=== PATIENT | male | born 1955 | race Caucasian/White ===

== ENCOUNTER 2016-12-19 17:09 | Inpatient (IN) | payer MEDICARE, MEDICAID ==
[2016-12-19] MEDS ORDERED: Sodium Chloride 0.9% 1,000 ML IV ONE ×2 (17:24→19:32)
[2016-12-19] MEDS ORDERED: Ondansetron 4 MG/2 ML SDV IVPUSH ONE (17:25)
--- NOTE | 2016-12-19 17:38 | EDM.PDOC ---
ED HPI GENERAL MEDICAL PROBLEM - General Chief Complaint: General Stated Complaint: REACTION TO CHEMO Time Seen by Provider: 12/19/16 17:09 Source of Information: Reports: Patient, Family History Limitations: Reports: Physical Impairment - History of Present Illness INITIAL COMMENTS - FREE TEXT/NARRATIVE: 61 y.o.w.m with a history of bladder CA, on chemo, came to the ed due to severe diarrhea, weakness and unable to ambulate. Poor historian. Onset: Unknown/Unsure Onset Date: 12/19/16 Onset Time: 06:00 Duration: Hour(s): Location: Reports: Abdomen Quality: Reports: Ache Severity: Mild Improves with: Reports: Immobilization Worsens with: Reports: Movement Context: Reports: Activity Associated Symptoms: Reports: Weakness - Related Data Allergies Allergy/AdvReac Type Severity Reaction Status Date / Time No Known Allergies Allergy Verified 12/19/16 17:16 Home Meds: Home Meds Losartan/Hydrochlorothiazide [Losartan-HCTZ 100-12.5 MG] 1 each PO DAILY [History] Sennosides [Senokot] 8.6 mg PO DAILY #14 tablet 03/02/16 [Rx] .Nausea Medication During Chemo PO Q4H PRN 12/19/16 [History] Past Medical History HEENT History: Reports: Cataract Cardiovascular History: Reports: Hypertension Genitourinary History: Reports: Other (See Below) Other Genitourinary History: bladder cancer Oncologic (Cancer) History: Reports: Bladder - Past Surgical History HEENT Surgical History: Reports: Cataract Surgery Male Surgical History: Reports: Other (See Below) Social & Family History - Family History Family Medical History: Noncontributory Cardiac: Reports: Other (See Below) Other Cardiac Family History: states that brother had heart attack last week - Tobacco Use Smoking Status *Q: Never Smoker Second Hand Smoke Exposure: No - Caffeine Use Caffeine Use: Reports: Soda - Recreational Drug Use Recreational Drug Use: No ED ROS GENERAL - Review of Systems Review Of Systems: Unable To Obtain ED EXAM, GENERAL - Physical Exam Exam: See Below Exam Limited By: Physical Impairment General Appearance: Alert, WD/WN, Mild Distress, Obese Eye Exam: Bilateral Eye: Normal Inspection Ears: Normal External Exam Ear Exam: Bilateral Ear: Auricle Normal Nose: Normal Inspection, Normal Mucosa Throat/Mouth: Normal Inspection Head: Atraumatic, Normocephalic Neck: Normal Inspection, Supple, Non-Tender Respiratory/Chest: No Respiratory Distress Cardiovascular: Normal Peripheral Pulses, Regular Rate, Rhythm Peripheral Pulses: 1+: Femoral (L), Femoral (R) GI/Abdominal: Normal Bowel Sounds, Soft (Male) Exam: Deferred Rectal (Males) Exam: Deferred Back Exam: Normal Inspection, Full Range of Motion Extremities: Normal Inspection, Normal Range of Motion, Non-Tender Neurological: Alert, Oriented, CN II-XII Intact, Abnormal Gait Psychiatric: Normal Affect, Depressed Mood Skin Exam: Warm, Dry, Intact Lymphatic: No Adenopathy EKG INTERPRETATION EKG Date: 12/19/16 Time: 19:45 Rhythm: NSR Rate (Beats/Min): 87 [place]: Normal P-Wave: Present QRS: Normal ST-T: Normal QT: Normal Comparison: NA - No Prior EKG Course - Vital Signs Text/Narrative:: 61 y.o.w.m with a history of bladder CA, on chemo, came to the ed due to severe diarrhea, weakness and unable to ambulate. Poor historian. PE: Morbid obese, unkempt, dry mucosal membrane, depressed mood Imaging: not indicated Labs: WBC 4.2 potassium: 2.9 Sodium 127 BNP 9, Lactic acid 1.8 Impression: Weakness, hypokalemia, Bladder CA, Diarrhea, Hyponatremia, tinea inguinalis Tx: NS, Potassium, Zofran, Eeexam: improved Plan: Admit for observation Last Recorded V/S: Last Vital Signs Temp 36.9 C 12/19/16 17:10 Pulse 95 12/19/16 17:10 Resp 15 12/19/16 17:10 BP 124/91 H 12/19/16 17:10 Pulse Ox - Orders/Labs/Meds Orders: Active Orders 24 hr Category Date Time Status Patient Status [ADT] Routine ADT 12/19/16 19:45 Active Oxygen Therapy [RC] PRN Care 12/19/16 19:45 Active VTE/DVT Education [RC] Per Unit Routine Care 12/19/16 19:45 Active Vital Signs [RC] Q4H Care 12/19/16 19:45 Active UA W/MICROSCOPIC [URIN] Stat Lab 12/19/16 20:20 Ordered Resuscitation Status Routine Resus Stat 12/19/16 19:44 Ordered EKG 12 Lead [EK] Routine Ther 12/19/16 19:40 Ordered Medication Orders Acetaminophen (Tylenol) 650 mg PO Q6H PRN PRN Reason: Fever Clotrimazole (Lotrimin Af 1% Crm) 0.1 gm TOP BID DEBORAH Labs: Laboratory Tests 12/19/16 12/19/16 12/19/16 Range/Units 17:35 17:35 17:35 WBC 4.3 L (4.5-12.0) X10-3/uL RBC 4.31 (4.30-5.75) x10(6)uL Hgb 12.1 (11.5-15.5) g/dL Hct 35.1 (30.0-51.3) % MCV 81.5 (80-96) fL MCH 28.2 (27.7-33.6) pg MCHC 34.6 (32.2-35.4) g/dL RDW 13.9 (11.5-15.5) % Plt Count 145 (125-369) X10(3)uL MPV 8.7 (7.4-10.4) fL Add Manual Diff Yes Neutrophils % (Manual) 57 (46-82) % Band Neutrophils % 6 (0-6) % Lymphocytes % (Manual) 26 (13-37) % Monocytes % (Manual) 11 (4-12) % PT 10.4 (8.7-11.1) INR 1.03 (0.89-1.13) Sodium 127 L D (135-145) mmol/L Potassium 2.9 L (3.5-5.3) mmol/L Chloride 92 L D (100-110) mmol/L Carbon Dioxide 24 (23-29) mmol/L BUN 22 (8-23) mg/dL Creatinine 1.0 (0.6-1.3) mg/dL Est Cr Clr Drug Dosing 95.24 mL/min Estimated GFR (MDRD) > 60 (>60) BUN/Creatinine Ratio 22.0 H (9-20) Glucose 145 H (80-116) mg/dL Lactic Acid (0.5-2.2) mmol/L Calcium 8.2 L (8.6-10.2) mg/dL Creatine Kinase 65 (60-160) IU/L B-Natriuretic Peptide (0-100) pg/mL 12/19/16 12/19/16 Range/Units 17:35 17:35 WBC (4.5-12.0) X10-3/uL RBC (4.30-5.75) x10(6)uL Hgb (11.5-15.5) g/dL Hct (30.0-51.3) % MCV (80-96) fL MCH (27.7-33.6) pg MCHC (32.2-35.4) g/dL RDW (11.5-15.5) % Plt Count (125-369) X10(3)uL MPV (7.4-10.4) fL Add Manual Diff Neutrophils % (Manual) (46-82) % Band Neutrophils % (0-6) % Lymphocytes % (Manual) (13-37) % Monocytes % (Manual) (4-12) % PT (8.7-11.1) INR (0.89-1.13) Sodium (135-145) mmol/L Potassium (3.5-5.3) mmol/L Chloride (100-110) mmol/L Carbon Dioxide (23-29) mmol/L BUN (8-23) mg/dL Creatinine (0.6-1.3) mg/dL Est Cr Clr Drug Dosing mL/min Estimated GFR (MDRD) (>60) BUN/Creatinine Ratio (9-20) Glucose (80-116) mg/dL Lactic Acid 1.8 (0.5-2.2) mmol/L Calcium (8.6-10.2) mg/dL Creatine Kinase (60-160) IU/L B-Natriuretic Peptide 9 (0-100) pg/mL Meds: Medications Generic Name Dose Route Start Last Admin Trade Name Freq PRN Reason Stop Dose Admin Acetaminophen 650 mg 12/19/16 20:31 Tylenol PO Q6H PRN Fever Clotrimazole 0.1 gm 12/19/16 21:00 Lotrimin Af 1% Crm TOP BID DEBORAH Discontinued Medications Generic Name Dose Route Start Last Admin Trade Name Freq PRN Reason Stop Dose Admin Sodium Chloride 1,000 mls @ 999 mls/hr 12/19/16 17:24 12/19/16 17:53 Normal Saline IV 12/19/16 18:24 999 mls/hr .BOLUS ONE Administration Sodium Chloride 1,000 mls @ 999 mls/hr 12/19/16 19:32 12/19/16 19:30 Normal Saline IV 12/19/16 20:32 999 mls/hr .BOLUS ONE Administration Morphine Sulfate 2 mg 12/19/16 17:27 12/19/16 19:03 Morphine IVPUSH 12/19/16 17:28 Not Given ONETIME ONE Ondansetron HCl 8 mg 12/19/16 17:25 12/19/16 17:58 Zofran IVPUSH 12/19/16 17:26 8 mg ONETIME ONE Administration Potassium Chloride 40 meq 12/19/16 19:30 12/19/16 19:43 Klor-Con M20 PO 12/19/16 19:31 40 meq ONETIME ONE Administration Departure - Departure Time of Disposition: 20:49 Disposition: Refer to Observation Condition: Fair Clinical Impression: Weakness, Hypokalemia - Discharge Information - My Orders Last 24 Hours: My Active Orders 12/19/16 19:40 EKG 12 Lead [EK] Routine 12/19/16 19:44 Resuscitation Status Routine 12/19/16 19:45 Patient Status [ADT] Routine Oxygen Therapy [RC] PRN VTE/DVT Education [RC] Per Unit Routine Vital Signs [RC] Q4H 12/19/16 20:20 UA W/MICROSCOPIC [URIN] Stat - Assessment/Plan Last 24 Hours: My Active Orders 12/19/16 19:40 EKG 12 Lead [EK] Routine 12/19/16 19:44 Resuscitation Status Routine 12/19/16 19:45 Patient Status [ADT] Routine Oxygen Therapy [RC] PRN VTE/DVT Education [RC] Per Unit Routine Vital Signs [RC] Q4H 12/19/16 20:20 UA W/MICROSCOPIC [URIN] Stat
[2016-12-19] MEDS: Morphine 2 MG/ML Syringe IVPUSH ONE ×2 (18:01→19:03)
[2016-12-19] MEDS ORDERED: Potassium Chloride 20 MEQ Tab.ER PO ONE (19:30)
[2016-12-19] MEDS: Acetaminophen 325 MG Tab PO PRN (20:45)
[2016-12-19] MEDS ORDERED: Clotrimazole 1% Crm 30 GM Tube TOP SCH ×2 (21:00→21:23)
--- NOTE | 2016-12-20 09:10 | PCM.HP ---
H&P History of Present Illness - General Date of Service: 12/20/16 Admit Problem/Dx: Admission Diagnosis/Problem Admission Diagnosis/Problem Weakness Source of Information: Patient History Limitations: Reports: No Limitations - History of Present Illness Initial Comments - Free Text/Narative: This is a 61-year-old male patient with bladder any ureter cancer. He had chemotherapy 9 days ago and Y[facility]. He says his been having problems with nausea all along and uses antinausea medicine for that please not aware what it is. He states after his chemotherapy he was constipated for for 5 days. He states he took a laxative and then strained and he states that his hemorrhoids started to bleed. Then he started having diarrhea. 2 days prior to admission he started having fevers and chills. He has some abdominal cramping, nausea, vomiting, diarrhea of blood. He has no exposures currently lives by himself. His a little nasal congestion but no cough. He denies dysuria, pyuria, hematuria - Related Data Allergies/Adverse Reactions: Allergies Allergy/AdvReac Type Severity Reaction Status Date / Time No Known Allergies Allergy Verified 12/19/16 17:16 Home Medications: Home Meds Losartan/Hydrochlorothiazide [Losartan-HCTZ 100-12.5 MG] 1 each PO DAILY [History] Sennosides [Senokot] 8.6 mg PO DAILY #14 tablet 03/02/16 [Rx] .Nausea Medication During Chemo PO Q4H PRN 12/19/16 [History] Past Medical History HEENT History: Reports: Cataract Cardiovascular History: Reports: Hypertension Gastrointestinal History: Reports: Other (See Below) Other Gastrointestinal History: hernia operation x2 Genitourinary History: Reports: Other (See Below) Other Genitourinary History: bladder cancer Psychiatric History: Reports: Anxiety Endocrine/Metabolic History: Reports: Obesity/BMI 30+ Oncologic (Cancer) History: Reports: Bladder - Past Surgical History HEENT Surgical History: Reports: Cataract Surgery Male Surgical History: Reports: Other (See Below) Social & Family History - Family History Family Medical History: Noncontributory Cardiac: Reports: Other (See Below) Other Cardiac Family History: states that brother had heart attack last week - Tobacco Use Smoking Status *Q: Never Smoker Second Hand Smoke Exposure: No - Caffeine Use Caffeine Use: Reports: Soda - Recreational Drug Use Recreational Drug Use: No H&P Review of Systems - Review of Systems: Review Of Systems: See Below General: Reports: Fever, Chills, Malaise, Weakness, Fatigue, Diaphoresis, Decreased Appetite. Denies: Night Sweats, Weight Loss HEENT: Reports: Sinus Congestion. Denies: Ear Pain, Rhinitis, Sore Throat Pulmonary: Reports: No Symptoms Cardiovascular: Reports: No Symptoms Gastrointestinal: Reports: Abdominal Pain, Diarrhea, Hematochezia, Nausea, Vomiting Genitourinary: Reports: No Symptoms Musculoskeletal: Reports: No Symptoms Skin: Reports: Other (Rash but he said for a while on his abdomen and under his armpits.) Psychiatric: Reports: No Symptoms Neurological: Reports: No Symptoms Hematologic/Lymphatic: Reports: No Symptoms Immunologic: Reports: No Symptoms Exam - Exam Exam: See Below - Vital Signs Vital Signs: Last Vital Signs Temp 100.0 F 12/20/16 00:00 Pulse 88 12/20/16 00:00 Resp 19 12/20/16 00:00 BP 100/50 L 12/20/16 00:00 Pulse Ox 91 L 12/20/16 00:00 Weight: 344 lb 14.4 oz - Exam General: Alert, Oriented, Cooperative HEENT: PERRLA, Conjunctiva Clear, Posterior Pharynx Clear, TMs Clear Neck: Supple, Trachea Midline Lungs: Clear to Auscultation, Normal Respiratory Effort. No: Crackles, Rales, Rhonchi Cardiovascular: Regular Rate, Regular Rhythm. No: Bradycardia, Tachycardia GI/Abdominal Exam: Normal Bowel Sounds, Soft, Non-Tender, No Distention, Other ( Obesity) Back Exam: Normal Inspection Extremities: Normal Inspection, Normal Range of Motion, Non-Tender, No Pedal Edema Neurological: Normal Speech, Normal Tone Neuro Extensive - Mental Status: Alert, Oriented x3, Normal Mood/Affect, Normal Cognition, Memory Intact Psychiatric: Alert, Normal Affect, Normal Mood - Patient Data Lab Results Last 24 hrs: Laboratory Results - last 24 hr 12/19/16 Range/Units 20:20 Urine Color Yellow (YELLOW) Urine Appearance Cloudy (CLEAR) Urine pH 6.0 (5.0-6.5) Ur Specific [place] 1.010 (1.010-1.025) Urine Protein 30 H (NEGATIVE) mg/dL Urine Glucose (UA) Normal (NEGATIVE) mg/dL Urine Ketones 15 H (NEGATIVE) mg/dL Urine Occult Blood Large H (NEGATIVE) Urine Nitrite Negative (NEGATIVE) Urine Bilirubin Negative (NEGATIVE) Urine Urobilinogen Normal (NEGATIVE) mg/dL Ur Leukocyte Esterase Large H (NEGATIVE) Urine RBC 30-40 H (0) Urine WBC 75-100 H (0) Ur Squamous Epith Cells Occasional (NS,R,O) Urine Bacteria Moderate H (NS) Result Diagrams: 12/19/16 17:35 12/19/16 17:35 *Q Meaningful Use (ADM) - VTE *Q VTE Criteria *Q: - Stroke *Q Stroke Criteria *Q: - AMI *Q AMI Criteria *Q: - Problem List (1) Gastroenteritis SNOMED Code(s): 67516797 ICD Code: K52.9 - NONINFECTIVE GASTROENTERITIS AND COLITIS, UNSPECIFIED Status: Acute Current Visit: Yes (2) Hyponatremia SNOMED Code(s): 96687313 ICD Code: E87.1 - HYPO-OSMOLALITY AND HYPONATREMIA Status: Acute Current Visit: Yes (3) Bladder cancer SNOMED Code(s): 019651105 ICD Code: C67.9 - MALIGNANT NEOPLASM OF BLADDER, UNSPECIFIED Status: Acute Current Visit: Yes (4) Dehydration SNOMED Code(s): 27330342 ICD Code: E86.0 - DEHYDRATION Status: Acute Current Visit: Yes (5) Hypokalemia SNOMED Code(s): 29618588 ICD Code: E87.6 - HYPOKALEMIA Status: Acute Current Visit: Yes Problem List Initiated/Reviewed/Updated: Yes Orders Last 24hrs: Active Orders 24 hr Category Date Time Status CULTURE BLOOD [BC] Routine Lab 12/19/16 20:30 Received Acetaminophen [Tylenol] Med 12/19/16 20:31 Active 650 mg PO Q6H PRN Clotrimazole [Lotrimin AF 1% Crm] Med 12/20/16 09:00 Active 0 gm TOP BID Medication Orders Acetaminophen (Tylenol) 650 mg PO Q6H PRN PRN Reason: Fever Last Admin: 12/19/16 20:45 Dose: 650 mg Clotrimazole (Lotrimin Af 1% Crm) 0 gm TOP BID DEBORAH Assessment/Plan Comment:: 1. Admit for observation. 2. IV fluids. 3. Recheck CBC and Chem-12. 4. White count is normal so he is not immunocompromised this time. 5. Gradually introduce solids. 6. Hold his antihypertensive medicine at this time. 7. Tylenol when necessary for fevers. 8. Up in chair and ambulate. 9. IV fluids.
[2016-12-20] MEDS ORDERED: Ondansetron 4 MG Tab.DIS PO PRN (09:11)
[2016-12-20] MEDS: NS + KCl 20mEq/L 1,000 ML IV SCH ×2 (09:43→17:47)
[2016-12-20] MEDS: Clotrimazole 1% Crm 30 GM Tube TOP SCH ×2 (09:44→21:53)
[2016-12-20] MEDS: Ciprofloxacin in D5W 400 MG in Premix Bag 1 BAG IV SCH ×4 (10:19→22:00)
[2016-12-20] MEDS: Potassium Chloride 20 MEQ Tab.ER PO SCH ×2 (17:20→21:56)
[2016-12-21] MEDS: NS + KCl 20mEq/L 1,000 ML IV SCH (01:35)
[2016-12-21] MEDS: Potassium Chloride 20 MEQ Tab.ER PO SCH ×2 (08:43→20:51)
[2016-12-21] MEDS: Clotrimazole 1% Crm 30 GM Tube TOP SCH ×2 (08:43→20:52)
--- NOTE | 2016-12-21 09:20 | PCM.PN ---
- General Info Date of Service: 12/21/16 Subjective Update: Jessica feels better today. Given admission for feeling very weak and sick,10 days post-chemotherapy. He received dense MVAC for bladder cancer at the beginning of the month. He complains that over the last few days he's had severe reflux symptoms of heartburn and difficulty swallowing which have not improved. He denies any shortness of breath no does he have any vomiting or diarrhea. He had it previously,has now improved Functional Status: Reports: Pain Controlled, Tolerating Diet - Review of Systems General: Reports: Weakness, Fatigue HEENT: Reports: No Symptoms Pulmonary: Reports: No Symptoms Cardiovascular: Reports: No Symptoms Gastrointestinal: Reports: Difficulty Swallowing Genitourinary: Reports: No Symptoms Musculoskeletal: Reports: No Symptoms Skin: Reports: No Symptoms Neurological: Reports: No Symptoms - Patient Data Vitals - Most Recent: Last Vital Signs Temp 99.0 F 12/21/16 04:00 Pulse 80 12/21/16 04:00 Resp 20 12/21/16 04:00 BP 158/86 H 12/21/16 04:00 Pulse Ox 96 12/21/16 04:00 Weight - Most Recent: 156.444 kg I&O - Last 24 Hours: Intake & Output 12/20/16 12/21/16 12/21/16 22:59 06:59 14:59 Intake Total 1220 Output Total 700 Balance 520 Lab Results Last 24 Hours: Laboratory Results - last 24 hr 12/20/16 12/20/16 12/21/16 Range/Units 09:29 09:29 06:20 WBC 3.6 L 3.4 L (4.5-12.0) X10-3/uL RBC 4.42 3.85 L (4.30-5.75) x10(6)uL Hgb 12.7 11.0 L (11.5-15.5) g/dL Hct 36.8 31.9 (30.0-51.3) % MCV 83.3 82.9 (80-96) fL MCH 28.7 28.5 (27.7-33.6) pg MCHC 34.4 34.4 (32.2-35.4) g/dL RDW 13.8 13.9 (11.5-15.5) % Plt Count 132 124 L (125-369) X10(3)uL MPV 8.9 9.2 (7.4-10.4) fL Add Manual Diff Yes Yes Neutrophils % (Manual) 65 49 (46-82) % Band Neutrophils % 1 (0-6) % Lymphocytes % (Manual) 24 39 H (13-37) % Monocytes % (Manual) 10 12 (4-12) % Sodium 135 (135-145) mmol/L Potassium 3.4 L (3.5-5.3) mmol/L Chloride 98 L D (100-110) mmol/L Carbon Dioxide 26 (23-29) mmol/L BUN 16 (8-23) mg/dL Creatinine 1.1 (0.6-1.3) mg/dL Est Cr Clr Drug Dosing 86.58 mL/min Estimated GFR (MDRD) > 60 (>60) BUN/Creatinine Ratio 14.5 (9-20) Glucose 199 H (80-116) mg/dL Calcium 8.1 L (8.6-10.2) mg/dL Total Bilirubin 0.7 (0.1-1.3) mg/dL AST 20 (5-27) IU/L ALT 21 (14-26) IU/L Alkaline Phosphatase 84 (56-112) IU/L Total Protein 6.8 (6.0-8.0) g/dL Albumin 3.3 (3.2-4.6) g/dL Globulin 3.5 g/dL Albumin/Globulin Ratio 0.9 08/25/17 Range/Units 06:20 WBC (4.5-12.0) X10-3/uL RBC (4.30-5.75) x10(6)uL Hgb (11.5-15.5) g/dL Hct (30.0-51.3) % MCV (80-96) fL MCH (27.7-33.6) pg MCHC (32.2-35.4) g/dL RDW (11.5-15.5) % Plt Count (125-369) X10(3)uL MPV (7.4-10.4) fL Add Manual Diff Neutrophils % (Manual) (46-82) % Band Neutrophils % (0-6) % Lymphocytes % (Manual) (13-37) % Monocytes % (Manual) (4-12) % Sodium 136 (135-145) mmol/L Potassium 3.7 (3.5-5.3) mmol/L Chloride 103 D (100-110) mmol/L Carbon Dioxide 25 (23-29) mmol/L BUN 15 (8-23) mg/dL Creatinine 1.1 (0.6-1.3) mg/dL Est Cr Clr Drug Dosing 86.58 mL/min Estimated GFR (MDRD) > 60 (>60) BUN/Creatinine Ratio 13.6 (9-20) Glucose 119 H D (80-116) mg/dL Calcium 7.7 L (8.6-10.2) mg/dL Total Bilirubin 0.2 (0.1-1.3) mg/dL AST 16 D (5-27) IU/L ALT 20 (14-26) IU/L Alkaline Phosphatase 69 (56-112) IU/L Total Protein 6.1 (6.0-8.0) g/dL Albumin 2.9 L (3.2-4.6) g/dL Globulin 3.2 g/dL Albumin/Globulin Ratio 0.9 [place]gado Results Last 24 Hours: Microbiology 12/19/16 20:20 Urine Culture - Preliminary Urine, Clean Catch Gram Positive Cocci 12/19/16 20:30 Aerobic Blood Culture - Preliminary Blood Anaerobic Blood Culture - Preliminary NO GROWTH AFTER 1 DAY Med Orders - Current: Current Medications Acetaminophen (Tylenol) 650 mg PO Q6H PRN PRN Reason: Fever Last Admin: 12/19/16 20:45 Dose: 650 mg Ciprofloxacin (Ciprofloxacin Hcl) 500 mg PO BID [facility] Clotrimazole (Lotrimin Af 1% Crm) 0 gm TOP BID [facility] Last Admin: 12/21/16 08:43 Dose: 1 dose Potassium Chloride/Sodium Chloride (Normal Saline With 20 Meq Kcl) 1,000 mls @ 150 mls/hr IV Q7H [facility] Last Admin: 12/21/16 01:35 Dose: 150 mls/hr Ciprofloxacin/Dextrose 400 mg/ (Premix) 200 mls @ 200 mls/hr IV Q12H [facility] Last Admin: 12/20/16 22:00 Dose: 200 mls/hr Ondansetron HCl (Zofran Odt) 4 mg PO Q6H PRN PRN Reason: Nausea/Vomiting Last Admin: 12/20/16 10:18 Dose: 4 mg Pantoprazole Sodium (Protonix) 40 mg PO 0600 [facility] Potassium Chloride (Klor-Con M20) 20 meq PO BID [facility] Last Admin: 12/21/16 08:43 Dose: 20 meq Discontinued Medications Clotrimazole (Lotrimin Af 1% Crm) 0.1 gm TOP BID DEBORAH Last Admin: 12/19/16 23:50 Dose: Not Given Clotrimazole (Lotrimin Af 1% Crm) 0 gm TOP BID [facility] Last Admin: 12/19/16 21:28 Dose: 1 applic Sodium Chloride (Normal Saline) 1,000 mls @ 999 mls/hr IV .BOLUS ONE Stop: 12/19/16 18:24 Last Admin: 12/19/16 17:53 Dose: 999 mls/hr Sodium Chloride (Normal Saline) 1,000 mls @ 999 mls/hr IV .BOLUS ONE Stop: 12/19/16 20:32 Last Admin: 12/19/16 19:30 Dose: 999 mls/hr Morphine Sulfate (Morphine) 2 mg IVPUSH ONETIME ONE Stop: 12/19/16 17:28 Last Admin: 12/19/16 19:03 Dose: Not Given Ondansetron HCl (Zofran) 8 mg IVPUSH ONETIME ONE Stop: 12/19/16 17:26 Last Admin: 12/19/16 17:58 Dose: 8 mg Potassium Chloride (Klor-Con M20) 40 meq PO ONETIME ONE Stop: 12/19/16 19:31 Last Admin: 12/19/16 19:43 Dose: 40 meq - Exam General: Alert, Oriented, Cooperative HEENT: Pupils Equal Neck: Supple Lungs: Clear to Auscultation, Normal Respiratory Effort Cardiovascular: Regular Rate, Regular Rhythm GI/Abdominal Exam: Normal Bowel Sounds, Soft, Non-Tender, No Organomegaly, No Distention, No Abnormal Bruit, No Mass, Pelvis Stable Extremities: Normal Inspection, Normal Range of Motion, Non-Tender, No Pedal Edema, Normal Capillary Refill Psy/Mental Status: Depressed - Problem List & Annotations (1) UTI (urinary tract infection) SNOMED Code(s): 57296292 Code(s): N39.0 - URINARY TRACT INFECTION, SITE NOT SPECIFIED Status: Acute Current Visit: Yes Qualifiers: Urinary tract infection type: acute cystitis (2) GERD (gastroesophageal reflux disease) SNOMED Code(s): 446360568 Code(s): K21.9 - GASTRO-ESOPHAGEAL REFLUX DISEASE WITHOUT ESOPHAGITIS Status: Acute Current Visit: Yes Qualifiers: Esophagitis presence: with esophagitis Qualified Code(s): K21.0 - Gastro- esophageal reflux disease with esophagitis (3) Obesities, morbid SNOMED Code(s): 416247760, 89802217433885 Code(s): E66.01 - MORBID (SEVERE) OBESITY DUE TO EXCESS CALORIES Status: Acute Current Visit: Yes (4) Bladder cancer SNOMED Code(s): 635820046 Code(s): C67.9 - MALIGNANT NEOPLASM OF BLADDER, UNSPECIFIED Status: Acute Current Visit: Yes Qualifiers: Bladder location: unspecified site Qualified Code(s): C67.9 - Malignant neoplasm of bladder, unspecified (5) Dehydration SNOMED Code(s): 68381511 Code(s): E86.0 - DEHYDRATION Status: Acute Current Visit: Yes (6) Gastroenteritis SNOMED Code(s): 27247272 Code(s): K52.9 - NONINFECTIVE GASTROENTERITIS AND COLITIS, UNSPECIFIED Status: Acute Current Visit: Yes (7) Weakness SNOMED Code(s): 53705811 Code(s): R53.1 - WEAKNESS Status: Acute Current Visit: Yes - Problem List Review Problem List Initiated/Reviewed/Updated: Yes - My Orders Last 24 Hours: My Active Orders 12/21/16 08:51 Convert IV to Saline Lock [OM.PC] Routine 12/21/16 09:14 Chest 2V [CR] Routine 12/21/16 09:15 Pantoprazole [ProTONIX] 40 mg PO 0600 Discontinue Saline Lock [Peripheral IV Discontinue] [OM.PC] Routine 12/21/16 21:00 Ciprofloxacin [Ciprofloxacin HCl] 500 mg PO BID - Plan Plan:: 1 patient still feels very weak, and therefore unable to go home today. I will stop the IV fluids and will change to oral antibiotics as we wait for the urine culture. I was ordered for chest x-ray given his "reflux symptoms". His EKG was normal. I will start him on Protonix orally to see if that improves them. I've consulted physical therapy to see him today for strengthening and ambulation possibly discharge planning with expectation of sending home tomorrow if he feels better.
[2016-12-21] MEDS ORDERED: Ciprofloxacin 500 MG Tab PO SCH (10:00)
[2016-12-21] MEDS: Pantoprazole 40 MG Tab.CR PO SCH (10:38)
[2016-12-21] MEDS: Ciprofloxacin in D5W 400 MG in Premix Bag 1 BAG IV SCH ×4 (11:40→22:41)
--- NOTE | 2016-12-21 15:05 | CR ---
INDICATION: Chest pain. CHEST: Two PA views of the chest and a lateral view of the chest were obtained 12/21/2016. No comparisons. Central line is noted with its tip in apparent good position in the SVC below the level of the justino and above the right atrium. The aorta is slightly tortuous with minimal calcification suggested in the arch. Somewhat diminished bone density may be present, raising question of osteoporosis or osteomalacia. This should be correlated clinically. Evidence of exogenous obesity is noted. The heart did not appear grossly enlarged. Findings compatible with COPD are noted. The lateral view is somewhat limited in that the posterior sulci are not definitely included on the study. They may be somewhat rounded, which is likely on the basis of fibrosis rather than small pleural effusions. No definite consolidating pneumonia or effusion was seen. There is some lateral pleural thickening, compatible with pleural fibrosis. Flowing hyperostotic changes are noted, which may be on the basis of early DISH. IMPRESSION: 1. No acute process. 2. ASD aorta. 3. COPD. 4. Demineralization compatible with osteoporosis; and possible DISH. 5. Central line in adequate position. MTDD
[2016-12-21] MEDS: Sodium Chloride 0.9% 10 ML Syringe FLUSH PRN (22:42)
[2016-12-22] MEDS: Pantoprazole 40 MG Tab.CR PO SCH (06:00)
[2016-12-22] MEDS: Sodium Chloride 0.9% 10 ML Syringe FLUSH PRN ×2 (07:37→22:33)
[2016-12-22] MEDS: Clotrimazole 1% Crm 30 GM Tube TOP SCH ×2 (08:22→20:57)
[2016-12-22] MEDS: Potassium Chloride 20 MEQ Tab.ER PO SCH ×2 (08:22→20:57)
--- NOTE | 2016-12-22 08:23 | PN ---
DATE SEEN: 12/22/2016 CHIEF COMPLAINT: Weakness. HISTORY OF PRESENT ILLNESS: This is a 61-year-old male admitted recently for weakness, dehydration, and urinary tract infection. Overnight, slept well, but yesterday during the day, information came out that the patient has had gram- positive cocci growing from 3 out of the 4 bottles that he has. Today, he complains of no chest pain, fever, chills, or cough and certainly no fever. PAST MEDICAL HISTORY: Bladder cancer, obesity, and GERD. SOCIAL HISTORY: Lives alone. REVIEW OF SYSTEMS: All other systems negative. PHYSICAL EXAMINATION: GENERAL: Not in any cardiopulmonary distress. VITAL SIGNS: Blood pressure is normal, temperature is 98.3, pulse is 73. EARS, NOSE AND THROAT: Negative. NECK: Supple. CHEST: Clear. HEART: Regular rhythm. MENTAL STATUS: Alert today. No dysthymia or crying spells. IMPRESSION: 1. Urinary tract infection. 2. Septicemia. 3. Obesity. 4. Dehydration due to gastroenteritis and chemo, improved. 5. Hypertension, stable. 6. Gastroesophageal reflux disease, stable. PLAN: Continue current medications. I did speak to Infectious Disease yesterday and recommended IV vancomycin along with Cipro until we get the identity of the bacteria that is causing septicemia to determine the course and duration of treatment. /[id number] CAMILO/SHILPI
[2016-12-22] MEDS: Ciprofloxacin in D5W 400 MG in Premix Bag 1 BAG IV SCH ×4 (11:00→22:32)
[2016-12-23] MEDS: Acetaminophen 325 MG Tab PO PRN (01:30)
[2016-12-23] MEDS: Pantoprazole 40 MG Tab.CR PO SCH (06:31)
[2016-12-23] MEDS: Sodium Chloride 0.9% 10 ML Syringe FLUSH PRN (07:46)
[2016-12-23] MEDS: Potassium Chloride 20 MEQ Tab.ER PO SCH (08:15)
[2016-12-23] MEDS: Clotrimazole 1% Crm 30 GM Tube TOP SCH (08:15)
[2016-12-23 08:35] VITALS: BP 136/91
--- NOTE | 2016-12-23 11:41 | PN ---
DATE SEEN: 12/23/2016 CHIEF COMPLAINT: Septicemia. HISTORY OF PRESENT ILLNESS: A 61-year-old male who was admitted after chemotherapy for weakness, dehydration, and generalized fatigue. He was found to have Staphylococcus epidermidis in the urine and hominis in blood, has been now feeling better to go, tolerating oral fluids, has no complaints this morning, and no fever since last week. REVIEW OF SYSTEMS: No chest pain. No headache or cough, nausea vomiting. ALLERGIES: Reviewed. MEDICATIONS: Reviewed. PHYSICAL EXAMINATION: GENERAL: He is afebrile. VITAL SIGNS: Blood pressure 136/91, pulse is 70 beats per minute, oxygenation 94%. EARS, NOSE AND THROAT: Negative. Mental status: Alert. SKIN: No pallor or jaundice. CARDIOVASCULAR: Normal. RESPIRATORY: Clear. LABORATORY DATA: As reviewed above, Staphylococcus hominis and epididymides were noted with sensitivities recorded last night. Both are sensitive to Bactrim DS. IMPRESSION: 1. Septicemia. 2. Urinary tract infection. 3. Gastroesophageal reflux disease. 4. Bladder cancer status post methotrexate, vinblastine, Adriamycin and cisplatin chemotherapy. 5. Obesity. 6. Dehydration due to gastroenteritis, stable. 7. Hypertension, stable. PLAN: Discharge the patient home today on Bactrim and has followup appointment next week with Dr. Cruz. /[id number] CAMILO/SHILPI
--- NOTE | 2016-12-24 02:11 | DISCH ---
DISCHARGE DATE: 12/23/2016 REASON FOR ADMISSION: 1. Dehydration. 2. Weakness. 3. Hypokalemia. 4. Gastroenteritis. DISCHARGE DIAGNOSES: 1. Septicemia with Staph hominis. 2. Urinary tract infection. 3. Dehydration. 4. Hypokalemia, stable. 5. Obesity. 6. GERD. 7. Hypertension, stable. 8. Bladder cancer status post MVAC chemo. CONSULTATIONS: Infectious Disease on the telephone on 12/22. PROCEDURES: None. BRIEF HISTORY AND HOSPITAL COURSE: Mr. King is a 61-year-old male with bladder cancer who was seen at the [facility] at the beginning of the month, given dense MVAC and discharged home, came to the ER complaining of nausea, decreased appetite, diarrhea, intermittent weakness, was found to have dehydration symptoms with an initial potassium 3.4 and normal sodium. IV fluids were initiated. At that visit, the urine showed 75-100 white cells. Initially, was given ciprofloxacin IV. He improved in terms of strength. Did not have a fever or white cell count elevation. White cell count has been between 3.4 and 3.6 during the hospital stay. However, the urine culture revealed Staphylococcus epidermidis and blood cultures done at the admission showed Staph hominis, they are both sensitive to vancomycin, which was added two days prior to discharge and Bactrim. He was well enough to be discharged home on the on Bactrim DS one tablet b.i.d. with followup with Dr. Cruz on Saturday. DISCHARGE MEDICATIONS: Protonix 40 mg a day, acetaminophen p.r.n., losartan hydrochlorothiazide 1 a day. FOLLOW UP: As previously mentioned with Dr. Cruz. I spent more than 35 minutes in the discharge of the patient. /[id number] CAMILO/MODL
== END 2016-12-23 11:15 | disposition home or self-care (01) | DRG 872 ==
LOC: FB.ED 17:09 → FB.MS 19:45 → OBSVTOIN 12-21 09:19
PROVIDERS: ADMIT Emergency Medicine; ATTEND Family Medicine
DX: A41.9 Sepsis, unspecified organism (principal); N39.0 Urinary tract infection, site not specified; E87.1 Hypo-osmolality and hyponatremia; Z68.41 Body mass index [BMI] 40.0-44.9, adult; R65.20 Severe sepsis without septic shock; K52.9 Noninfective gastroenteritis and colitis, unspecified; E87.6 Hypokalemia; C67.9 Malignant neoplasm of bladder, unspecified; I10 Essential (primary) hypertension; E66.01 Morbid (severe) obesity due to excess calories; E86.0 Dehydration; B95.7 Other staphylococcus as the cause of diseases classified elsewhere; K21.9 Gastro-esophageal reflux disease without esophagitis; R19.7 Diarrhea, unspecified; R26.2 Difficulty in walking, not elsewhere classified; B35.8 Other dermatophytoses; R53.1 Weakness
CPT/HCPCS: 36415 ×3; 80048; 80053 ×2; 81001; 82550; 83605; 83880; 85025 ×3; 85610; 87040; 87086; 93005; 96361; 96365; 96366 ×2; 96367; 96375; 99285; A9270 ×8; G0378 ×2; J0744 ×2; J2405; J3480 ×3; J7040 ×2; 71020; 80202; 87077; 87088; 87186; 96374; 99219; 99284; J3370; J7050

== ENCOUNTER 2018-01-29 12:55 | Emergency (ER) | payer MEDICARE, MEDICAID ==
[2018-01-29] MEDS ORDERED: Iopamidol 755 Mg/ML 100 ML Bottle IV ONE (14:32)
[2018-01-29 16:12] VITALS: BP 133/102
--- NOTE | 2018-01-30 09:00 | CT ---
INDICATION: D-dimer elevated, question PE, onset of chest pain, left anterolateral. COMPUTERIZED TOMOGRAPHY ANGIOGRAPHY OF THE CHEST WITH CONTRAST FOR PULMONARY ANGIOGRAPHY: Spiral 1.25 mm axial sections were obtained through the chest with 100 mL Isovue 370 at 3 mL/second, with sagittal and coronal reconstructions , 01/29/2018. No comparison CT of the chest was available. Total exam DLP = 1,403.79 mGy-cm. A definite active infiltrate or effusion was not identified. There are what appear to be some fibrotic strands - subpleural densities at the lingula minimally and in the middle lobe minimally and slightly more prominently in the right lower lobe laterally. No definite pneumonia, effusion , or metastatic nodules were seen. The heart did not appear enlarged. There was slight prominence of the thickness of the pericardium of questionable significance. Mediastinal lymphadenopathy is mild and nonspecific. Calcifications are noted in the arch of the aorta and in coronary arteries. No evidence of pulmonary embolus could be identified. At the 6th left rib laterally, seen on axial images #146 through #178, there is a destructive lesion of the anterolateral 6th rib on the left with density extending into the soft tissues, compatible with blastic metastatic disease. This would be compatible with bladder cancer metastases. Additionally, at T12 and L1, there are lytic destructive lesions of the vertebral bodies, also compatible with metastatic disease process. Flowing hyperostotic changes are also noted in the thoracic spine, compatible with DISH. IMPRESSION: 1. Multiple metastatic bony lesions are noted, most notably at the 6th left rib with destruction of the rib, expansion of the cortices, and extension of soft tissue abnormality into the adjacent soft tissues. T12 and L1 vertebral bodies are also involved with breaking through of the cortices of the vertebral bodies and some extension into soft tissue suggested at both the T12 and L1 vertebral bodies. The L1 lesion is on the right laterally and towards the midportion of the vertebral body. The T12 lesion is posteriorly located, extending over most of the midline and to the left of the vertebral body with destruction of the left lateral cortex, extending into the canal slightly and into the paraspinal tissues. 2. DISH. 3. ASHD/ASD. 4. Pulmonary fibrosis - minimal. Report was given in person to Dr. Galvan soon after the examination was completed on 01/29/2018. MTDD
--- NOTE | 2018-01-30 09:27 | CT ---
INDICATION: Left renal stone. CT ABDOMEN AND PELVIS, COMPLETE, WITH CONTRAST: Spiral 1.25 mm axial sections were obtained through the abdomen and pelvis with 100 mL Isovue 370 already on board after CT angiography of the chest. Additional 10 and 15 minute images were obtained to attempt to better visualize the urinary bladder in this patient with history of bladder CA. Sagittal and coronal reconstructions were obtained, 01/29/2018. Findings were compared with 10/12/2016. Total exam DLP = 2,952.99 mGy-cm. The gallbladder appears slightly distended but may be physiologically so, no gallstones were demonstrated. The liver appeared to be within normal limits. No adrenal abnormality was identified. No obstructive uropathy is seen. There is some mild renal cortical scarring on the right and minimal renal cortical scarring on the left. No renal masses were identified. CT urogram showed no evidence of obstructive uropathy or definite filling defect on the right. There is suspicion of a filling defect in the left renal pelvis, however, seen on axial image #176 and coronal images #80, 81, 82. Additional examination may be warranted. There is noted an indwelling ureteral stent catheter on the left with the pigtail ending in the urinary bladder. A splenule was noted inferior to the anterior aspect of the spleen, which was otherwise unremarkable. The pancreas has a fairly normal appearance. The appendix was not definitely visualized. No evidence of peritonitis or appendicitis was identified, however. Calcifications are noted in the abdominal aorta, celiac axis, superior mesenteric artery, iliac and femoral arteries. No additional organomegaly, mass lesions, or free fluid collections were identified in the abdomen or pelvis, except for abnormalities in the spine at T12 and L1, compatible with metastatic bony disease, lytic in nature and extending into the soft tissues paraspinal, as well as minimally into the spinal canal at T12. Would suggest a bone scan for further evaluation. Retroperitoneal metastatic lymph node suggested at the origin of the left common iliac artery. These are increased in size, compared with the previous examination, seen best on axial images #197 through #202. IMPRESSION: 1. Metastatic disease process at T12 and L1, destroying portions of those vertebral bodies with breakage of the cortices left laterally at T12 and right laterally at L1 with extension of the neoplastic process into the adjacent soft tissues. 2. ASD. 3. Distended urinary bladder, likely physiologic. 4. Possible filling defect in the renal pelvis of the left kidney. 5. Renal cortical scarring. 6. Postsurgical urinary bladder. 7. Retroperitoneal metastatic lymph node suggested at the origin of the left common iliac artery. These are increased in size, compared with the previous examination, seen best on axial images #197 through #202. 8. Indwelling left ureteral stent. 9. Thickened urinary bladder wall. Report was given in person to Dr. Galvna immediately after the examination was completed on 01/29/2018. LEID
--- NOTE | 2018-02-01 15:11 | EDM.PDOC ---
ED HPI GENERAL MEDICAL PROBLEM - General Chief Complaint: Flank Pain Stated Complaint: SIDE PAIN Time Seen by Provider: 01/29/18 13:10 Source of Information: Reports: Patient History Limitations: Reports: No Limitations - History of Present Illness INITIAL COMMENTS - FREE TEXT/NARRATIVE: This pleasant but uncomfortable and comes in with history of left upper quadrant and left chest wall discomfort has been going for several days. On 01/24 he was treated medically for kidney infection. He has not slept well for the last 2 days because he had chest wall pain chest discomfort and abdominal discomfort. It was 8/ 10 intensity. He also noted had hematuria without a fever. Past medical history is significant for hypertension. Low back pain( prostatism with out cancer but has had bladder cancer surgery and was treated with chemotherapy and radiation. Obesity with a BMI of 46.6 and arthritis. He has a Port-A-Cath placed. 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: NSAIDS Left Flank Pain Score (Numeric/FACES): 3 - Related Data Allergies Allergy/AdvReac Type Severity Reaction Status Date / Time No Known Allergies Allergy Verified 01/29/18 13:47 Home Meds: Home Meds Losartan/Hydrochlorothiazide [Losartan-HCTZ 100-12.5 MG] 1 each PO DAILY [History] Sennosides [Senokot] 8.6 mg PO DAILY #14 tablet 03/02/16 [Rx] Ciprofloxacin HCl 250 mg PO BID 01/29/18 [History] Meloxicam 7.5 mg PO BID 01/29/18 [History] Pantoprazole [ProTONIX] 40 mg PO 0600 PRN 01/29/18 [History] oxyCODONE HCl/Acetaminophen [Percocet 5-325 mg Tablet] 1 each PO Q6HR #20 tablet 01/29/18 [Rx] Past Medical History HEENT History: Reports: Cataract Cardiovascular History: Reports: Hypertension Gastrointestinal History: Reports: GERD, Other (See Below) Other Gastrointestinal History: hernia operation x2 Genitourinary History: Reports: BPH, Other (See Below) Other Genitourinary History: bladder cancer, some urinary obstruction Musculoskeletal History: Reports: Arthritis, Other (See Below) Other Musculoskeletal History: pain in ankles Psychiatric History: Reports: Anxiety Endocrine/Metabolic History: Reports: Obesity/BMI 30+ Oncologic (Cancer) History: Reports: Bladder - Past Surgical History HEENT Surgical History: Reports: Cataract Surgery Male Surgical History: Reports: TURP-Transurethral Resection of Prostate, Other (See Below) Other Male Surgeries/Procedures: bladder surgeries for CA Social & Family History - Family History Family Medical History: Noncontributory Cardiac: Reports: Other (See Below) Other Cardiac Family History: states that brother had heart attack last week - Tobacco Use Smoking Status *Q: Never Smoker - Caffeine Use Caffeine Use: Reports: None - Recreational Drug Use Recreational Drug Use: No ED ROS GENERAL - Review of Systems Review Of Systems: See Below Constitutional: Reports: No Symptoms HEENT: Reports: No Symptoms Respiratory: Reports: No Symptoms, Other (Chest wall pain) Cardiovascular: Reports: No Symptoms Endocrine: Reports: No Symptoms GI/Abdominal: Reports: Abdominal Pain, Other (Upper quadrant pain without nausea or vomiting) : Reports: Incontinence Musculoskeletal: Reports: No Symptoms Skin: Reports: No Symptoms Neurological: Reports: No Symptoms Psychiatric: Reports: No Symptoms ED EXAM, GI/ABD - Physical Exam Exam: See Below Text/Narrative:: Hasn't rate and points to his left chest and notes notes that his pain is in the left chest axillary region between the anterior and midaxillary line. In brief palpation the pain involves a fullness and pressure discomfort of the sixth to eighth ribs and has minimal left upper quadrant discomfort. Initially Trell came in with symptoms of bowel pain but after careful discussion this pain was really in his left chest. Exam Limited By: No Limitations General Appearance: Alert, Mild Distress Eyes: Bilateral: Normal Appearance Ears: Normal External Exam, Normal Canal, Normal TMs Nose: Normal Inspection, Normal Mucosa Head: Atraumatic, Normocephalic Neck: Normal Inspection Respiratory/Chest: No Respiratory Distress, Lungs Clear, Normal Breath Sounds, No Accessory Muscle Use, Other (Chest is tender between midaxillary line in the anterior axillary line and this is indeed by a mass effect of the between the sixth and seventh and eighth ribs. Closely involving the sixth rib) Cardiovascular: Normal Peripheral Pulses, Regular Rate, Rhythm, No Edema, No Gallop, No JVD, No Murmur, No Rub GI/Abdominal Exam: Normal Bowel Sounds, Soft, Non-Tender, Other (No left upper quadrant pain or guarding the pain is localized to the ribs around spinous process tenderness thoracic region) (Male) Exam: Deferred Rectal (Males) Exam: Deferred Back Exam: Vertebral Tenderness Extremities: Normal Inspection Neurological: Alert, Oriented, CN II-XII Intact, Normal Cognition, Normal Reflexes, No Motor/Sensory Deficits Psychiatric: Normal Affect, Normal Mood Skin Exam: Warm, Dry, Intact, Normal Color, No Rash Course - Vital Signs Last Recorded V/S: Last Vital Signs Temp 36.6 C 01/29/18 13:20 Pulse Resp 20 01/29/18 15:30 BP 133/102 H 01/29/18 15:30 Pulse Ox 95 01/29/18 15:30 - Orders/Labs/Meds Labs: Laboratory Tests 01/29/18 01/29/18 01/29/18 Range/Units 13:20 13:20 13:20 WBC 8.0 (4.5-12.0) X10-3/uL RBC 4.40 (4.30-5.75) x10(6)uL Hgb 12.3 (11.5-15.5) g/dL Hct 37.0 (30.0-51.3) % MCV 84.0 (80-96) fL MCH 28.0 (27.7-33.6) pg MCHC 33.3 (32.2-35.4) g/dL RDW 14.2 (11.5-15.5) % Plt Count 401 H (125-369) X10(3)uL MPV 7.4 (7.4-10.4) fL Neut % (Auto) 71.9 (46-82) % Lymph % (Auto) 14.3 (13-37) % [place] % (Auto) 10.4 (4-12) % Eos % (Auto) 3 (1.0-5.0) % Baso % (Auto) 1 (0-2) % Neut # (Auto) 5.9 (1.6-8.3) # Lymph # (Auto) 1.1 (0.6-5.0) # [place] # (Auto) 0.8 (0.0-1.3) # Eos # (Auto) 0.2 (0.0-0.8) # Baso # (Auto) 0.0 (0.0-0.2) # D-Dimer, Quantitative (0.0-0.59) mg/LFEU Sodium 138 (135-145) mmol/L Potassium 4.1 (3.5-5.3) mmol/L Chloride 101 (100-110) mmol/L Carbon Dioxide 27 (21-32) mmol/L BUN 20 H (7-18) mg/dL Creatinine 1.1 (0.70-1.30) mg/dL Est Cr Clr Drug Dosing 83.22 mL/min Estimated GFR (MDRD) > 60 (>60) BUN/Creatinine Ratio 18.2 (9-20) Glucose 108 (80-116) mg/dL Calcium 9.3 (8.6-10.2) mg/dL Total Bilirubin 0.4 (0.1-1.3) mg/dL AST 11 (5-25) IU/L ALT 18 (12-36) U/L Alkaline Phosphatase 154 H (56-112) IU/L Troponin I (<0.017-0.056) ng/mL Total Protein 8.0 (6.0-8.0) g/dL Albumin 3.0 L (3.2-4.6) g/dL Globulin 5.0 g/dL Albumin/Globulin Ratio 0.6 Urine Color Brown (YELLOW) Urine Appearance Cloudy (CLEAR) Urine pH 5.0 (5.0-6.5) Ur Specific [place] 1.020 (1.010-1.025) Urine Protein 30 H (NEGATIVE) mg/dL Urine Glucose (UA) Normal (NEGATIVE) mg/dL Urine Ketones Negative (NEGATIVE) mg/dL Urine Occult Blood Large H (NEGATIVE) Urine Nitrite Positive H (NEGATIVE) Urine Bilirubin Small H (NEGATIVE) Urine Urobilinogen Normal (NEGATIVE) mg/dL Ur Leukocyte Esterase Large H (NEGATIVE) Urine RBC Packed H (0) Urine WBC Packed H (0) 01/29/18 01/29/18 Range/Units 13:20 13:20 WBC (4.5-12.0) X10-3/uL RBC (4.30-5.75) x10(6)uL Hgb (11.5-15.5) g/dL Hct (30.0-51.3) % MCV (80-96) fL MCH (27.7-33.6) pg MCHC (32.2-35.4) g/dL RDW (11.5-15.5) % Plt Count (125-369) X10(3)uL MPV (7.4-10.4) fL Neut % (Auto) (46-82) % Lymph % (Auto) (13-37) % [place] % (Auto) (4-12) % Eos % (Auto) (1.0-5.0) % Baso % (Auto) (0-2) % Neut # (Auto) (1.6-8.3) # Lymph # (Auto) (0.6-5.0) # [place] # (Auto) (0.0-1.3) # Eos # (Auto) (0.0-0.8) # Baso # (Auto) (0.0-0.2) # D-Dimer, Quantitative 2.35 H (0.0-0.59) mg/LFEU Sodium (135-145) mmol/L Potassium (3.5-5.3) mmol/L Chloride (100-110) mmol/L Carbon Dioxide (21-32) mmol/L BUN (7-18) mg/dL Creatinine (0.70-1.30) mg/dL Est Cr Clr Drug Dosing mL/min Estimated GFR (MDRD) (>60) BUN/Creatinine Ratio (9-20) Glucose (80-116) mg/dL Calcium (8.6-10.2) mg/dL Total Bilirubin (0.1-1.3) mg/dL AST (5-25) IU/L ALT (12-36) U/L Alkaline Phosphatase (56-112) IU/L Troponin I < 0.017 L (<0.017-0.056) ng/mL Total Protein (6.0-8.0) g/dL Albumin (3.2-4.6) g/dL Globulin g/dL Albumin/Globulin Ratio Urine Color (YELLOW) Urine Appearance (CLEAR) Urine pH (5.0-6.5) Ur Specific [place] (1.010-1.025) Urine Protein (NEGATIVE) mg/dL Urine Glucose (UA) (NEGATIVE) mg/dL Urine Ketones (NEGATIVE) mg/dL Urine Occult Blood (NEGATIVE) Urine Nitrite (NEGATIVE) Urine Bilirubin (NEGATIVE) Urine Urobilinogen (NEGATIVE) mg/dL Ur Leukocyte Esterase (NEGATIVE) Urine RBC (0) Urine WBC (0) Meds: Medications Discontinued Medications Generic Name Dose Route Start Last Admin Trade Name Vargas PRN Reason Stop Dose Admin Iopamidol 100 ml 01/29/18 14:32 01/29/18 14:46 Isovue-370 (76%) IV 01/29/18 14:33 100 ml . 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, Bladder cancer metastasized to bone Bladder cancer Qualifiers: Bladder location: unspecified site Qualified Code(s): C67.9 - Malignant neoplasm of bladder, unspecified - Discharge Information *PRESCRIPTION DRUG MONITORING PROGRAM REVIEWED*: Not Applicable *COPY OF PRESCRIPTION DRUG MONITORING REPORT IN PATIENT IRMA: Not Applicable Prescriptions: oxyCODONE HCl/Acetaminophen [Percocet 5-325 mg Tablet] 1 each PO Q6HR #20 tablet Referrals: Nathaniel Cruz MD [Primary Care Provider] - Forms: ED Department Discharge Additional Instructions: Bladder cancer it appears to have a metastasis to the left sixth rib on the side of your chest. You will need to follow upnext week with with Dr. Salamanca, and call your oncologist, Dr. Ortiz, for follow-up of this metastasis to your left sixth rib. I have prescribed medicine for your pain. Percocet, 1 every 4-6 hours for pain. It appears that U have has changes in your thoracic spine that are abnormal.
--- NOTE | 2018-02-04 08:00 | ER ---
DATE: 01/29/2018 Telephone call to the patient regarding his staphylococcus epidermidis urine culture results. It is either contaminant or it is real. 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 The patient will be receiving Amoxil clavulanate which is Augmentin 875 mg b.i.d., 20 tablets. Prescription called into [facility], [phone], in [place]. The patient is going to be following with his doctor, Dr. Aguilar at [facility], and he is to call them, let them know he started the antibiotic. /[id number] MARKOS/SHILPI
== END 2018-01-29 15:55 | disposition home or self-care (01) ==
LOC: FB.ED 12:55
DX: C67.9 Malignant neoplasm of bladder, unspecified (principal); C79.51 Secondary malignant neoplasm of bone; I10 Essential (primary) hypertension; F41.9 Anxiety disorder, unspecified; Z79.899 Other long term (current) drug therapy
CPT/HCPCS: 36415; 71275; 74178; 80053; 81001; 84484; 85025; 85379; 87086; 87088; 87186; 99285; Q9967